=== PATIENT | female | born 1950 | race Caucasian/White ===

== ENCOUNTER → 2020-11-08 | Outpatient (CLI) | payer MEDICARE, OTHER ==
[~2020-11-08] MED LIST: HYDR1TAB94 PO; MAGNESIUM PO; TAMS.4ER PO
== END ==
LOC: PLD 08:50 → LAB SHORT 08:50
DX: R30.0 Dysuria (principal)
CPT/HCPCS: 87077; 87086; 87186

== ENCOUNTER → 2020-11-25 | Outpatient (CLI) | payer MEDICARE, OTHER | END | disposition home or self-care (01) | LOC: LAB SHORT 08:25 → LAB 08:25 | DX: R30.0 Dysuria (principal) | CPT/HCPCS: 87077; 87086; 87186 ==